=== PATIENT | female | born 1965 | race Caucasian/White ===

== ENCOUNTER 2019-08-08 12:39 | Inpatient (IN) ==
--- NOTE | 2019-08-08 13:17 | Diag Imaging Result Doc PS360 ---
EXAM: CHEST-2 VIEWS 08/08/2019 HISTORY: chest congestion low o2 sat TECHNIQUE: PA and lateral chest COMMENT: There is a calcified granuloma in the left upper lobe. The lungs are better expanded than on 04/28/2017 but otherwise there has been no significant change. IMPRESSION: No acute disease. Electronically signed by Fortino Mcneil 08/08/2019 1:15 PM
[2019-08-08 14:20] LABS: BASO# 0.01 X1000 (0.0-0.2); BASO% 0.1 % (0.0-0.8); EOS# 0.06 X1000 (0.0-0.7); EOS% 0.8 % (0.0-10.0); HEMATOCRIT 36.4 % (37.0-47.0); HEMOGLOBIN 10.5 g/dL (12.0-16.0); IMM GRAN# 0.02 X1000 (0.0-0.04); IMM GRAN% 0.3 % (0.0-0.5); LYMPH# 1.96 X1000 (1.2-3.4); LYMPH% 25.6 % (20.5-51.1); MCHC 28.8 g/dL (33-37); MCV 86.7 FL (81-99); MONO% 5.2 % (1.7-9.3); MPV 10.6 FL (7.4-10.4); NEUT# 5.21 X1000 (1.4-6.5); PLT 329 X1000 (130-400); RDW 19.3 % (11.5-14.5); WBC 7.66 X1000 (4.8-10.8)
[2019-08-08 14:23] LABS: AGAP 15; ALBUMIN 3.9 g/dL (3.5-5.0); ALKALINE PHOSPHATASE 82 U/L (32-104); BUN 9 mg/dL (8-22); CALCIUM 8.2 mg/dL (8.8-10.2); CHLORIDE 106 mmol/L (98-107); COSMO 282; CREATININE 0.7 mg/dL (0.5-0.9); ESTIMATED GFR > 60; GLUCOSE 106 mg/dL (70-104); GOT 14 U/L (10-30); GPT 17 U/L (10-36); POTASSIUM 4.3 mmol/L (3.5-5.1); SODIUM 142 mmol/L (136-145); TCO2 21 mmol/L (25-35); TOTAL PROTEIN 6.1 g/dL (6.3-8.3)
[2019-08-08] MEDS ORDERED: LOVENOX 1 MG/KG SUBQ ONE (14:57)
--- NOTE | 2019-08-08 14:58 | Vascular Study Report ---
EXAM: Venous U/S Right Leg HISTORY: rule out DVT TECHNIQUE: Velazquez scale, color Doppler, and duplex evaluation was performed. Standard protocol. COMPARISON: None. FINDINGS: The posterior tibial vein is noncompressible consistent with acute DVT. There is also thrombosis of the right saphenous vein and a scoop operator vein. The remainder of the deep veins deep veins of the right lower extremity demonstrate appropriate compressibility and augmentation. IMPRESSION: Deep venous thrombosis involving the posterior tibial vein. Superficial thrombosis of the right saphenous vein and scoop operator vein. Electronically signed by Agnieszka Vieira 08/08/2019 2:56 PM
[2019-08-08] MEDS ORDERED: LOVENOX SUBQ ONE (15:15)
[2019-08-08] MEDS ORDERED: MORPHINE IM ONE (15:35)
[2019-08-08] MEDS ORDERED: PHENERGAN IM ONE (15:36)
[2019-08-08] MEDS ORDERED: LOVENOX SUBQ SCH (17:45)
--- NOTE | 2019-08-08 18:18 | PROVIDER DOCUMENTATION ---
This chart was entered by Kavita Waterman Scribe, acting as scribe for Maria G Ram MD. HPI-General Adult - General Chief Complaint: Extremity Pain Stated Complaint: SENT BY - BLOOD CLOT Time Seen by Provider: 08/08/19 13:34 Source: patient Allergies/Adverse Reactions: Patient Allergies Allergy/AdvReac Type Severity Reaction Status Date / Time Sulfa (Sulfonamide Allergy Severe ANAPHYLAXIS Verified 08/08/19 13:57 Antibiotics) Home Medications: Home Medication List Medication Instructions Recorded Confirmed Last Taken Type Cyclobenzaprine HCl [Flexeril] 10 mg PO HS 11/24/12 08/08/19 04/26/17 20:00 History Buspirone HCl 10 mg PO BID 08/08/19 08/08/19 Unknown History Celecoxib 200 mg PO DAILY 08/08/19 08/08/19 Unknown History Citalopram [Celexa] 1 tab PO DAILY 08/08/19 08/08/19 Unknown History Hydrocodone/Acetaminophen [Alvo 1 tab PO TID PRN 08/08/19 08/08/19 Unknown History 5-325 Tablet] LISINOpril [Prinivil] 20 mg PO DAILY 08/08/19 08/08/19 Unknown History Nortriptyline [Pamelor] 10 mg PO DAILY 08/08/19 08/08/19 Unknown History Pregabalin 150 mg PO DAILY 08/08/19 08/08/19 Unknown History - History of Present Illness -Gen Adult Nature of Presenting Problems: Pt is a 54 yowf with c/o pain in her right foot that has spread upward into her calf and lower thigh. Pt states that pain started in her right inside ankle 5 days ago and has gotten worse and moved outward from original location. Pt is has HTN and is obese but states she is otherwise healthy. Pt is alert and nontoxic in appearance. Location of Pain/Injury: reports: lower extremity (Pt states pain started in right ankle and has spread to foot, calf and lower thigh) Pain Radiation: reports: legs (lower) Quality of Pain: reports: sharp, throbbing Onset/Duration: reports: 5 days ago Timing: reports: still present, getting worse (spread from ankle to foot, calf and lower thigh) Associated Symptoms: reports: cough. denies: chest pain, fever/chills, syncope, vomiting Review of Systems - Adult - REVIEW OF SYSTEMS - ADULT Constitutional: denies: chills, fever Eyes: reports: no symptoms reported Ears, Nose, Mouth & Throat: reports: no symptoms reported Cardiovascular: denies: chest pain, syncope Respiratory: reports: see HPI, cough Gastrointestinal: reports: no symptoms reported Genitourinary: reports: no symptoms reported Musculoskeletal: reports: see HPI, joint swelling (right ankle) Integumentary: reports: no symptoms reported Neurological: denies: dizziness/vertigo, headache/migraines Psychiatric: reports: no symptoms reported Endocrine: reports: no symptoms reported Hematologic/Lymphatic: reports: no symptoms reported Allergic/Immunologic: reports: no symptoms reported All Other Systems: Reviewed and Negative Past History - Adult - PAST MEDICAL HISTORY-ADULT Review of Records: reports: Old Records Reviewed, Nursing Assessment Review, Medications Reviewed, Social history reviewed & non-contributory. Major Childhood Illnesses: reports: denies history Cardiovascular: reports: HTN Respiratory: reports: denies history Gastrointestinal: reports: denies history Genitourinary: reports: denies history Musculoskeletal: reports: denies history Neurological: reports: denies history Endocrine/Immune: reports: denies history Other Conditions: reports: denies history - IMMUNIZATION STATUS Childhood Immunizations: See Nurse Assessment Flu Vaccine: See Nurse Assessment - SOCIAL HISTORY Smoking: non-smoker Living Situation: family Physical Exam-General - PHYSICAL EXAM-ADULT Initial Vital Signs Reviewed: Yes (HR 108, O2 93 RA) - CONSTITUTIONAL General Appearance: appears well, alert, no apparent distress, obese - EYES Eyes: PERRL/EOMI - HEAD, EARS, NOSE, MOUTH & THROAT HENMT: moist mucous membranes - NECK Neck: non-tender, full range of motion, supple - RESPIRATORY Respiratory: chest non-tender, lungs clear, normal breath sounds - CARDIOVASCULAR Cardiovascular: normal peripheral pulses, tachycardia - GASTROINTESTINAL (ABDOMEN) Abdominal Exam: non tender, soft - MUSCULOSKELETAL Back Exam: no CVA tenderness, no vertebral tenderness Extremity: normal range of motion, calf tenderness (right leg), pedal edema (right leg), swelling (right ankle), tenderness (ankle, calf and lower thigh) - SKIN Integumentary: normal color, normal turgor, warm/dry - NEUROLOGIC Neurologic: grossly normal, no motor/sensory deficits - PSYCHIATRIC Psych/Mental Status: normal mood/affect, normal thought content, normal thought process, oriented x 3 Progress - PLAN OF CARE/RESULTS Progress/Plan/Lab Results: Vital Signs - 8 hr 08/08/19 12:43 Temperature 99.1 F Pulse Rate 108 H Respiratory Rate 18 Blood Pressure 137/80 O2 Sat by Pulse Oximetry 93 L Laboratory Results - last 24 hr 08/08/19 12:53 D-Dimer, Quantitative 2.74 H Orders Category Date Time Status CHEST-2 VIEWS [RAD] Stat Exams 08/08/19 12:50 Completed D-DIMER [COAG] Stat Lab 08/08/19 12:53 Completed US [Venous U/S Right Leg] Stat Ther 08/08/19 13:43 Ordered Result Diagrams: 08/08/19 12:53 08/08/19 12:53 - XRAY 1 XRAY Study: Chest Impression: See EMR Report (EXAM: CHEST-2 VIEWS 08/08/2019 HISTORY: chest congestion low o2 sat TECHNIQUE: PA and lateral chest COMMENT: There is a calcified granuloma in the left upper lobe. The lungs are better expanded than on 04/28/2017 but otherwise there has been no significant change. IMPRESSION: No acute disease. Electronically signed by Fortino Mcneil 08/08/2019 1:15 PM 08/08/19 1315 Interpreting Physician: Fortino Mcneil MD Dictated Date/Time: 08/08/19 1314 cc: Maria G aRm MD; Kavita eMeks) - CT/MRI 1 CT Study: Lower Ext Impression: See EMR Report (Patient: LATRICE AUSTINADM Date: 08/08/19MR#: [id number] : 1965Acct#: [id number] Family Physician: Kavita Meeks EXAM: Venous U/S Right Leg HISTORY: rule out DVT TECHNIQUE: Velazquez scale, color Doppler, and duplex evaluation was performed. Standard protocol. COMPARISON: None. FINDINGS: The posterior tibial vein is noncompressible consistent with acute DVT. There is also thrombosis of the right saphenous vein and a rig welder vein. The remainder of the deep veins deep veins of the right lower extremity demonstrate appropriate compressibility and augmentation. IMPRESSION: Deep venous thrombosis involving the posterior tibial vein. Superficial thrombosis of the right saphenous vein and rig welder vein. Electronically signed by Agnieszka Vieira 08/08/2019 2:56 PM 08/08/19 1456 Interpreting Physician: Agnieszka Vieira MD Dictated Date/Time: 08/08/19 1451 cc: Maria G Ram MD; Kavita Meeks) Departure - Departure Date of Disposition Decision: 08/08/19 Time of Disposition Decision: 18:16 DIAGNOSIS: DVT (deep venous thrombosis) Qualifiers: DVT location: lower extremity Affected thrombotic vein of extremity: unspecified vein of extremity Chronicity: acute Laterality: right Qualified Code(s): I82.401 - Acute embolism and thrombosis of unspecified deep veins of right lower extremity Pulmonary embolism Qualifiers: Pulmonary embolism type: unspecified Chronicity: acute Acute cor pulmonale presence: without acute cor pulmonale Qualified Code(s): I26.99 - Other pulmonary embolism without acute cor pulmonale Disposition: ADMITTED INPATIENT 09 Certified Medical Emergency: Emergent Condition: Critical Referrals and Follow-Ups: Kavita Meeks CRNP [Primary Care Provider] - Discharge Education: Steps to Quit Smoking, [id number] - Critical Care Note This patient required my direct & personal management of CC.: Yes Total Time (mins): 31 Critical Care Statement: This patient required my direct personal management to treat or rule out processes, the absence of which, could potentiallly result in sudden, clinically significant life or limb threatening deterioration. Attestation - Physician/ UTE Attestation Patient care was provided by Advanced Practice Provider:: No The physician spent face to face time with patient:: Yes Advanced Practice Provider documentation review:: Supervising physician onsite and consulted in the evaluation and care of this patient. The physician did have a face to face encounter with the patient. This chart was documented by the indicated scribe, (Kavita Waterman, Alexibanjelica) and accurately reflects the services I performed and decisions made by me, Maria G Ram MD, as attested by the provider's signature.
--- NOTE | 2019-08-08 18:24 | Diag Imaging Result Doc PS360 ---
EXAM: CT ANGIOGRM PULMONARY ARTERIES INDICATION: shortness of breath TECHNIQUE: This exam was performed using automated exposure control, adjustment of mA or kV according to patient size, and/or use of iterative reconstruction technique. Thin section axial images and 3-D MIPS were obtained. COMPARISON: None. FINDINGS: Note that there is a large amount of soft tissue contrast in the right axillary region and upper right breast from an earlier CT with an infiltrated IV contrast bolus. There are small filling defects in lobar and segmental branches of the pulmonary arteries bilaterally leading to the lower lobes as well as the right middle lobe consistent with pulmonary emboli. The clot burden is fairly light. There is no cardiomegaly and no pulmonary dilatation. There is no evidence of aortic dissection or aneurysm. There is no evidence of significant mediastinal or hilar lymphadenopathy. There is a calcified granuloma in the left upper lobe. No airspace consolidations are appreciated. There is no evidence of pulmonary infarct. There is no pleural fluid collection and no pneumothorax. Limited views of the upper abdomen are essentially unremarkable. IMPRESSION: 1.Bilateral pulmonary emboli as described with a fairly light clot burden. 2.Infiltrated contrast in the soft tissues of the upper right chest wall from an earlier CT. Electronically signed by Yaakov Curry 08/08/2019 6:22 PM
[2019-08-08] MEDS: FLEXERIL PO SCH (20:07)
[2019-08-08] MEDS: NORCO-5 PO PRN (20:07)
[2019-08-08] MEDS: BUSPAR PO SCH (20:07)
--- NOTE | 2019-08-08 23:10 | HISTORY AND PHYSICAL ---
CHIEF COMPLAINT: Swelling lower extremity. HISTORY OF PRESENT ILLNESS: The patient is a 54-year-old female who has no previous injury or prolonged illness. However, she is a smoker and is overweight. She has been walking more than usual due to her mother's current illness. States she has been sitting more than usual, but not for a long period of time. Noted she started having pain in her right calf and ankle when she started walking about 5 days ago. She presented to her primary care, [facility]. They had her come to the ER, where she was subsequently diagnosed with DVT. ALLERGIES: Sulfa. MEDICATIONS: Celebrex, BuSpar, Celexa, [place] p.r.n., Prinivil 20, Pamelor 10 and Lyrica 150. REVIEW OF SYSTEMS: The patient notes that she has been short of breath. Her oxygen level is low in the ER. Denies any recent cough, congestion. Denies any fevers or chills. Does note that she has had some sharp, stabbing pain in her right calf and ankle, also swelling in her right lower extremity. Denies any headaches, blurred vision, change in vision. Denies any focalized numbness, tingling, weakness in his extremities. Denies dysuria, frequency, urgency, constipation, melena, hematochezia. PAST MEDICAL HISTORY: Significant for hypertension, chronic arthritis. FAMILY HISTORY: Noncontributory. No family history of recurrent DVTs. SOCIAL HISTORY: Patient lives at home. States she does smoke. Primary care is [facility]. PHYSICAL EXAMINATION: VITAL SIGNS: Reviewed. She is afebrile. Saturation 93% on 2 L. Pulse 108. Blood pressure stable. GENERAL: Patient is very pleasant. She is in no respiratory distress currently. HEENT: Normocephalic. NECK: Supple. CARDIOVASCULAR: Regular rate. CHEST: Clear. ABDOMEN: Soft. EXTREMITIES: She is tender in her right calf, has trace edema. NEUROLOGIC: No focal changes. ASSESSMENT: 1. Deep venous thrombosis right lower extremity. 2. Hypertension. 3. Acute hypoxic respiratory failure. PLAN: We are going to admit her to the hospital, place her on Lovenox. We will check CT to rule out pulmonary emboli and we will follow. cc: Macario Wright MD
--- NOTE | 2019-08-08 23:41 | HISTORY AND PHYSICAL ---
CHIEF COMPLAINT: Right foot pain that radiates to the calf and thigh. HISTORY OF PRESENT ILLNESS: This is a 54-year-old female with a history of urinary incontinence, hypertension and migraines. She presents to the emergency room complaining of right foot pain that radiates up into her calf and lower thigh that has been present for 5 days and progressively gotten worse. She describes this as a sharp, throbbing type pain. She rates it as a 8/10 at its worst and a 1 to 2/10 at its best. She denies any shortness of breath, chest pain, palpitations. PAST MEDICAL HISTORY: Hypertension, migraines, urinary incontinence. PAST SURGICAL HISTORY: Right knee replacement, gastric bypass. SOCIAL HISTORY: She lives with family members. She smokes about a half pack of cigarettes a day, she has for about 20 years. She denies any alcohol or illicit drug use. FAMILY HISTORY: Positive for hypertension. REVIEW OF SYSTEMS: Discussed with patient with pertinent positives stated in HPI. She denied any syncope, dizziness, any chest pain or palpitations, any shortness of breath, cough, fever, chills, any night sweats, recent weight loss or weight gain, any nausea, vomiting, diarrhea, constipation, black or bloody vomitus or stools, any hematuria, dysuria, frequency, urgency. PHYSICAL EXAMINATION: GENERAL: This is a 54-year-old female who is lying on the stretcher in the emergency room in no distress. VITAL SIGNS: Blood pressure is 115/61 with heart rate 80, respirations are 22, temperature is 98.3 degrees with O2 saturations 100% on 2 L nasal cannula, she was 89% on room air. EYES: Pupils equal, round, react to light. EOMs are intact. Sclerae are anicteric. HENT: Head is normocephalic, atraumatic. Mucous membranes are moist. NECK: Supple with trachea midline. CARDIOVASCULAR: Regular rate and rhythm. S1 and S2 appreciated. No murmur. EXTREMITIES: She has right lower extremity edema. No edema to upper extremities and left lower extremity. Right calf is tender to palpation. Left calf is not tender. SKIN: Warm and dry. NEUROLOGIC: She is alert and oriented x3. GASTROINTESTINAL: Abdomen is soft, nontender, nondistended with bowel sounds in all 4 quadrants. PULMONARY: Breath sounds are clear. No increased work of breathing noted. Chest rises and falls symmetric to respiration. LABS: WBC is 7.6 with hemoglobin 10.5, hematocrit 36.4, platelets of 329,000. Sodium 142, potassium 4.3, BUN 9, creatinine 0.7 with a glucose of 106. D-dimer is 2.74. Right lower extremity venous ultrasound reveals DVT in the right posterior tibial vein, superficial thrombus of the right saphenous and dog obedience instructor vein. ASSESSMENT AND PLAN: 1. Deep venous thrombosis, right lower extremity. 2. Elevated D-dimer. 3. Hypertension. 4. History of migraines. PLAN: The patient has been admitted to the medical-surgical floor. She will be placed on telemetry. We will give Lovenox 1 mg/kg. We will identify her home medications and continue these as appropriate. We will check a CBC, CMP, magnesium and TSH in the morning. Place her on a regular diet. The patient was examined and plan was discussed with Dr. Wright. Further treatment pending hospital course. Dictated by CUCO Kruger for Macario Wright MD cc: CUCO Kruger MD
[2019-08-09] MEDS: NORCO-5 PO PRN (04:17)
[2019-08-09] MEDS: LOVENOX SUBQ SCH ×2 (04:17→15:00)
[2019-08-09 06:13] LABS: HEMOGLOBIN 9.5 g/dL (12.0-16.0); MCH 24.4 PG (27-31); MCHC 27.9 g/dL (33-37); MCV 87.2 FL (81-99); MPV 10.1 FL (7.4-10.4); RBC 3.9 XMIL (4.2-5.4); RDW 19.3 % (11.5-14.5); WBC 5.63 X1000 (4.8-10.8)
[2019-08-09 06:17] LABS: AGAP 9; ALBUMIN 3.3 g/dL (3.5-5.0); ALKALINE PHOSPHATASE 72 U/L (32-104); BUN 10 mg/dL (8-22); CALCIUM 8.3 mg/dL (8.8-10.2); CHLORIDE 106 mmol/L (98-107); COSMO 279; CREATININE 0.6 mg/dL (0.5-0.9); ESTIMATED GFR > 60; GLUCOSE 106 mg/dL (70-104); GOT 17 U/L (10-30); GPT 15 U/L (10-36); MAGNESIUM 2.1 mg/dL (1.5-2.7); POTASSIUM 4.4 mmol/L (3.5-5.1); SODIUM 140 mmol/L (136-145); TCO2 25 mmol/L (25-35); TOTAL PROTEIN 5.9 g/dL (6.3-8.3)
[2019-08-09] MEDS ORDERED: FLU VACCINE IM ONE (09:00)
[2019-08-09] MEDS: LYRICA PO SCH (10:32)
[2019-08-09] MEDS: PAMELOR PO SCH (10:32)
[2019-08-09] MEDS: CELEXA PO SCH (10:32)
[2019-08-09] MEDS: BUSPAR PO SCH ×2 (10:32→21:16)
[2019-08-09] MEDS: PRINIVIL PO SCH (10:33)
[2019-08-09] MEDS: BENADRYL PO PRN ×3 (10:46→21:15)
[2019-08-09] MEDS: NORCO-10 PO PRN ×3 (10:46→21:16)
[2019-08-09 11:57] LABS: INR 0.95; PROTIME 13.2 Seconds (11.0-16.0)
[2019-08-09] MEDS ORDERED: BLISTEX MEDICATED BERRY LIP BALM TOP ONE (14:52)
[2019-08-09] MEDS: COUMADIN PO SCH (21:16)
[2019-08-09] MEDS: FLEXERIL PO SCH (21:16)
--- NOTE | 2019-08-10 00:45 | PROGRESS NOTE ---
DATE: 08/09/2019 SUBJECTIVE: Patient notes that she is feeling okay. Still having some mild shortness of breath, still having right calf pain. PHYSICAL EXAMINATION: Temperature 97.5 degrees, pulse 89, respiratory rate 18, BP 135/66. General: The patient is very pleasant. She is in no respiratory distress while she is sitting in bed. She does get short of breath with activity. HEENT: Normocephalic. Neck: Supple. Cardiovascular: Regular rate. No murmurs. Chest clear and nonlabored. Abdomen: Soft, nondistended. Extremities: Moves all extremities. Still has right calf pain. ASSESSMENT: 1. Deep venous thrombosis, right lower extremity. 2. Bilateral small pulmonary emboli. 3. Hypertension. 4. Hypoxic respiratory failure secondary to her bilateral pulmonary emboli. PLAN: We are going to continue the patient in the hospital. Continue Lovenox. Start her on Coumadin as she does not have insurance. We will continue pain control and will follow. cc: Macario Wright MD
[2019-08-10] MEDS: BENADRYL PO PRN ×6 (02:15→21:03)
[2019-08-10] MEDS: NORCO-10 PO PRN ×6 (02:15→21:04)
[2019-08-10] MEDS: LOVENOX SUBQ SCH ×2 (04:24→18:05)
[2019-08-10] MEDS: PRINIVIL PO SCH (10:02)
[2019-08-10] MEDS: PAMELOR PO SCH (10:02)
[2019-08-10] MEDS: LYRICA PO SCH (10:02)
[2019-08-10] MEDS: CELEXA PO SCH (10:02)
[2019-08-10] MEDS: BUSPAR PO SCH ×2 (10:03→20:48)
[2019-08-10] MEDS: COUMADIN PO SCH (20:48)
[2019-08-10] MEDS: FLEXERIL PO SCH (20:48)
[2019-08-10] MEDS: ZOFRAN IV PRN (20:49)
--- NOTE | 2019-08-11 00:09 | PROGRESS NOTE ---
DATE: 08/10/2019 SUBJECTIVE: Patient has no new complaints. States that she is feeling okay. PHYSICAL EXAMINATION: Vital Signs: Temperature 98 degrees, pulse 76, respiratory rate 18, BP 126/65. General: Patient is an obese female who is in no respiratory distress. HEENT: Normocephalic. Neck: Supple. Cardiovascular: Regular rate. Chest: Clear. Abdomen: Soft. Extremities: Moves all extremities. ASSESSMENT: 1. Bilateral small pulmonary emboli. 2. Hypothyroidism. 3. History of migraines. PLAN: We will continue patient in the hospital. Continue treatment with heparin until her Coumadin, INR becomes therapeutic. cc: Macario Wright MD
[2019-08-11] MEDS: BENADRYL PO PRN ×5 (01:50→20:17)
[2019-08-11] MEDS: NORCO-10 PO PRN ×5 (01:50→20:17)
[2019-08-11] MEDS: ZOFRAN IV PRN ×5 (01:53→20:17)
[2019-08-11] MEDS: LOVENOX SUBQ SCH ×2 (04:34→16:18)
[2019-08-11 08:27] LABS: INR 1.12
[2019-08-11] MEDS: LYRICA PO SCH (10:02)
[2019-08-11] MEDS: PROTONIX PO SCH (10:02)
[2019-08-11] MEDS: PRINIVIL PO SCH (10:03)
[2019-08-11] MEDS: PAMELOR PO SCH (10:03)
[2019-08-11] MEDS: CELEXA PO SCH (10:03)
[2019-08-11] MEDS: BUSPAR PO SCH ×2 (10:03→20:17)
[2019-08-11] MEDS: CARAFATE PO SCH ×3 (12:05→20:18)
--- NOTE | 2019-08-11 16:58 | PROGRESS NOTE ---
DATE: 08/11/2019 SUBJECTIVE: Patient with no new complaints other than nausea. States she still has some shortness of breath, but this has not really changed. PHYSICAL EXAMINATION: Temperature 98.6 degrees, pulse 87, respiratory rate 18, BP 140/68.General: Patient is in no distress. HEENT: Normocephalic. Neck: Supple. Cardiovascular: Regular rate. Chest: Clear. Abdomen: Soft. Extremities: Moves all extremities. ASSESSMENT: 1. Bilateral pulmonary emboli. 2. Deep venous thrombosis right lower extremity. 3. Nausea, likely reflux. 4. Hypertension. PLAN: We are going to add PPI and Carafate. Continue Coumadin until her INR is greater than 2. cc: Macario Wright MD
[2019-08-11] MEDS: MIRALAX PO SCH ×2 (17:33→20:34)
[2019-08-11] MEDS: COUMADIN PO SCH (20:17)
[2019-08-11] MEDS: FLEXERIL PO SCH (20:18)
[2019-08-12] MEDS: ZOFRAN IV PRN ×4 (05:08→22:34)
[2019-08-12] MEDS: NORCO-10 PO PRN ×4 (05:08→22:25)
[2019-08-12] MEDS: BENADRYL PO PRN ×4 (05:08→22:26)
[2019-08-12] MEDS: LOVENOX SUBQ SCH ×2 (05:08→18:18)
[2019-08-12] MEDS: PROTONIX PO SCH (06:01)
[2019-08-12] MEDS: PRINIVIL PO SCH (08:00)
[2019-08-12] MEDS: BUSPAR PO SCH ×2 (08:00→22:26)
[2019-08-12] MEDS: CELEXA PO SCH (08:00)
[2019-08-12] MEDS: PAMELOR PO SCH (08:00)
[2019-08-12] MEDS: CARAFATE PO SCH ×4 (08:00→22:25)
[2019-08-12] MEDS: LYRICA PO SCH (08:00)
[2019-08-12] MEDS: MIRALAX PO SCH ×2 (08:00→22:27)
--- NOTE | 2019-08-12 16:55 | PROGRESS NOTE ---
DATE: 08/12/2019 SUBJECTIVE: Patient notes that she has epigastric pain with nausea. Denies any fevers or chills. States it hurts when she eats. She also has suprapubic pain. EXAM: Vitals: Temp 98.5 degrees, pulse 88, respiratory rate 18, BP 117/55. General: Patient is awake, currently in no respiratory distress. HEENT: Normocephalic. Neck: Supple. Cardiovascular: Regular rate. Chest: Clear. Abdomen: Soft. Extremities: Moves all extremities. ASSESSMENT: 1. Epigastric pain of undetermined origin. PPI and Carafate did not help. 2. Bilateral pulmonary emboli. 3. Right lower extremity deep venous thrombosis. 4. Nausea. PLAN: We are going to continue patient in the hospital. We are going to check an ultrasound of her abdomen and will follow. We will continue Coumadin until INR is greater than 2. cc: Macario Wright MD
--- NOTE | 2019-08-12 18:15 | Diag Imaging Result Doc PS360 ---
EXAM: US ABDOMEN-COMPLETE HISTORY: pain, epgastric, LLQ TECHNIQUE: Abdominal ultrasound COMPARISON: 12/20/2012 FINDINGS: The pancreas and aorta are predominantly obscured. Normal inferior vena cava. No focal hepatic abnormality. The gallbladder is not present. The common bile duct measures 4 mm. Normal kidneys. No hydronephrosis. The spleen measures 15.1 cm in length. No ascites. IMPRESSION: 1.Cholecystectomy 2.Mild splenomegaly Electronically signed by Román Daniel 08/12/2019 6:12 PM
[2019-08-12] MEDS: COUMADIN PO SCH (22:26)
[2019-08-12] MEDS: FLEXERIL PO SCH (22:26)
[2019-08-13] MEDS: PROTONIX PO SCH ×2 (05:23→06:11)
[2019-08-13] MEDS: BENADRYL PO PRN ×4 (05:23→20:28)
[2019-08-13] MEDS: CARAFATE PO SCH ×5 (05:23→20:28)
[2019-08-13] MEDS: LOVENOX SUBQ SCH ×2 (05:24→16:13)
[2019-08-13] MEDS: NORCO-10 PO PRN ×4 (05:24→20:28)
[2019-08-13] MEDS: ZOFRAN IV PRN ×3 (05:25→14:10)
[2019-08-13 06:38] LABS: HEMATOCRIT 28.6 % (37.0-47.0); HEMOGLOBIN 8.3 g/dL (12.0-16.0); MCH 24.4 PG (27-31); MCV 84.1 FL (81-99); MPV 10.9 FL (7.4-10.4); RBC 3.4 XMIL (4.2-5.4); WBC 4.1 X1000 (4.8-10.8)
[2019-08-13 06:53] LABS: INR 1.51; PROTIME 19.1 Seconds (11.0-16.0)
[2019-08-13 07:00] LABS: ALBUMIN 3.1 g/dL (3.5-5.0); CALCIUM 7.8 mg/dL (8.8-10.2); CREATININE 1.9 mg/dL (0.5-0.9); TOTAL BILIRUBIN 0.2 mg/dL (0.20-1.00); TOTAL PROTEIN 5.9 g/dL (6.3-8.3)
[2019-08-13] MEDS: MIRALAX PO SCH ×2 (09:53→20:28)
[2019-08-13] MEDS: PAMELOR PO SCH (09:53)
[2019-08-13] MEDS: LYRICA PO SCH (09:53)
[2019-08-13] MEDS: PRINIVIL PO SCH (09:54)
[2019-08-13] MEDS: BUSPAR PO SCH ×2 (09:54→20:29)
[2019-08-13] MEDS: CELEXA PO SCH (09:54)
--- NOTE | 2019-08-13 19:56 | PROGRESS NOTE ---
DATE: 08/13/2019 SUBJECTIVE: The patient notes that she is starting to feel a little bit better, less nauseated, thinks that she will be able to drink a little bit better today. OBJECTIVE: Temperature 98.3, pulse 101, respiratory rate 18, BP 129/42.General: The patient is awake, alert. She is pleasant. She is in no current distress. HEENT: Normocephalic. Neck: Supple. Cardiovascular: Regular rate. Chest: Clear. Abdomen: Soft. Extremities: Moves all extremities. ASSESSMENT: 1. Hyponatremia at 128. 2. Acute volume depletion with a BUN elevation at 38 and 1.9. 3. Pulmonary emboli bilateral. 4. Right lower extremity DVT. PLAN: Currently the patient's IV has infiltrated. She is starting to drink better. We are going to leave her IV out today and recheck her labs in the a.m. If her creatinine and BUN continue to climb then certainly we will have to put an IV back in and go that route. The patient is aware. cc: Macario Wright MD
[2019-08-13] MEDS: ZOFRAN ODT PO PRN (20:28)
[2019-08-13] MEDS: COUMADIN PO SCH ×2 (20:28)
[2019-08-13] MEDS: FLEXERIL PO SCH (20:29)
[2019-08-14] MEDS: LOVENOX SUBQ SCH ×2 (04:53→17:43)
[2019-08-14] MEDS: ZOFRAN ODT PO PRN ×2 (04:54→10:34)
[2019-08-14] MEDS: PROTONIX PO SCH ×2 (04:54→07:38)
[2019-08-14] MEDS: NORCO-10 PO PRN ×4 (04:54→19:43)
[2019-08-14] MEDS: BENADRYL PO PRN ×4 (04:54→19:43)
[2019-08-14] MEDS: CARAFATE PO SCH ×5 (04:55→21:32)
[2019-08-14 07:07] LABS: HEMATOCRIT 27.4 % (37.0-47.0); HEMOGLOBIN 7.9 g/dL (12.0-16.0); MCH 24.3 PG (27-31); MCHC 28.8 g/dL (33-37); MCV 84.3 FL (81-99); MPV 11.3 FL (7.4-10.4); RBC 3.25 XMIL (4.2-5.4); WBC 3.92 X1000 (4.8-10.8)
[2019-08-14 07:14] LABS: INR 1.97; PROTIME 23.6 Seconds (11.0-16.0)
[2019-08-14 08:14] LABS: ALBUMIN 2.9 g/dL (3.5-5.0); ALKALINE PHOSPHATASE 63 U/L (32-104); BUN 37 mg/dL (8-22); CALCIUM 7.5 mg/dL (8.8-10.2); CREATININE 1.7 mg/dL (0.5-0.9); ESTIMATED GFR 31; GLUCOSE 97 mg/dL (70-104); GOT 34 U/L (10-30); GPT 24 U/L (10-36); TCO2 20 mmol/L (25-35); TOTAL BILIRUBIN < 0.15 mg/dL (0.20-1.00); TOTAL PROTEIN 4.9 g/dL (6.3-8.3)
[2019-08-14 09:46] LABS: POTASSIUM 4.9 mmol/L (3.5-5.1); SODIUM 130 mmol/L (136-145)
[2019-08-14 09:47] LABS: CHLORIDE 99 mmol/L (98-107)
[2019-08-14 09:48] LABS: AGAP 11
[2019-08-14] MEDS: PAMELOR PO SCH (09:48)
[2019-08-14] MEDS: MIRALAX PO SCH ×2 (09:49→21:33)
[2019-08-14] MEDS: LYRICA PO SCH (09:49)
[2019-08-14] MEDS: CELEXA PO SCH (09:49)
[2019-08-14] MEDS: BUSPAR PO SCH ×2 (09:49→21:32)
[2019-08-14 09:50] LABS: COSMO 269
[2019-08-14] MEDS: NS 1,000 ML IV SCH (10:03)
[2019-08-14] MEDS: ZOFRAN IV PRN ×2 (15:12→19:43)
--- NOTE | 2019-08-14 19:19 | PROGRESS NOTE ---
DATE: 08/14/2019 SUBJECTIVE: Patient notes that she is drinking a little bit better, although states she still has a very dry tongue. States she is thirsty all the time. Denies any fevers, chills. Still having some left upper quadrant abdominal pain. PHYSICAL EXAMINATION: Vital Signs: Temperature 98.3, pulse 18, respiratory rate 22, BP 128/42. General: Patient is awake. She is in no current respiratory distress. HEENT: Normocephalic. Neck: Supple. Cardiovascular: Regular rate. Chest: Clear, nonlabored. Abdomen: Soft nondistended. Extremities: Moves all extremities. ASSESSMENT/PLAN: 1. Hyponatremia at 132. 2. Acute on chronic renal failure. Creatinine actually is improving. It was 0.7 on admit, then as high as 1.9, currently is improving at 1.7. Does still appear to be volume depleted . 3. Moderate protein calorie malnutrition. 4. Anemia of chronic disease. Will certainly need to follow this closely. We are going to Hemoccult her stools. Her hemoglobin was 10 on admit. It has currently dropped down to 7.9. She is on Coumadin for her pulmonary emboli. 5. Bilateral pulmonary emboli. 6. Right lower extremity deep venous thrombosis. 7. Hypertension. We are going to hold her lisinopril given her elevation in her creatinine, and will follow. cc: Macario Wright MD
[2019-08-14] MEDS: FLEXERIL PO SCH (21:32)
[2019-08-14] MEDS: COUMADIN PO SCH ×2 (21:32)
[2019-08-15] MEDS: NORCO-10 PO PRN ×4 (03:31→22:05)
[2019-08-15] MEDS: BENADRYL PO PRN ×4 (03:32→22:05)
[2019-08-15] MEDS: ZOFRAN IV PRN (03:32)
[2019-08-15] MEDS: LOVENOX SUBQ SCH (03:32)
[2019-08-15] MEDS: NS 1,000 ML IV SCH ×2 (05:19→07:51)
[2019-08-15 06:16] LABS: HEMOGLOBIN 7.6 g/dL (12.0-16.0); MCH 24.1 PG (27-31); MCHC 28.1 g/dL (33-37); MCV 85.4 FL (81-99); MPV 10.6 FL (7.4-10.4); RBC 3.16 XMIL (4.2-5.4); RDW 19.1 % (11.5-14.5); WBC 3.42 X1000 (4.8-10.8)
[2019-08-15 06:23] LABS: INR 2.4; PROTIME 27.6 Seconds (11.0-16.0)
[2019-08-15 06:30] LABS: AGAP 10; ALBUMIN 3.3 g/dL (3.5-5.0); ALKALINE PHOSPHATASE 67 U/L (32-104); BUN 26 mg/dL (8-22); CALCIUM 7.8 mg/dL (8.8-10.2); CHLORIDE 101 mmol/L (98-107); COSMO 271; ESTIMATED GFR 58; GLUCOSE 98 mg/dL (70-104); GOT 29 U/L (10-30); GPT 25 U/L (10-36); MAGNESIUM 2.4 mg/dL (1.5-2.7); POTASSIUM 4.8 mmol/L (3.5-5.1); SODIUM 133 mmol/L (136-145); TCO2 22 mmol/L (25-35); TOTAL BILIRUBIN < 0.15 mg/dL (0.20-1.00); TOTAL PROTEIN 5.9 g/dL (6.3-8.3)
[2019-08-15] MEDS: PROTONIX PO SCH (06:31)
[2019-08-15] MEDS: LYRICA PO SCH (08:42)
[2019-08-15] MEDS: BUSPAR PO SCH ×2 (08:42→22:06)
[2019-08-15] MEDS: PAMELOR PO SCH (08:42)
[2019-08-15] MEDS: CARAFATE PO SCH ×4 (08:42→22:06)
[2019-08-15] MEDS: MIRALAX PO SCH ×2 (08:42→22:10)
[2019-08-15] MEDS: CELEXA PO SCH (08:42)
[2019-08-15] MEDS: ZOFRAN ODT PO PRN ×3 (09:47→22:06)
--- NOTE | 2019-08-15 11:41 | Diag Imaging Result Doc PS360 ---
EXAM: CT ABD/PELVIS W/PO AND IV CON HISTORY: LLQ pain TECHNIQUE: This exam was performed using automated exposure control, adjustment of mA or kV according to patient size, and/or use of iterative reconstruction technique. 3D post processing with MIPs. COMPARISON: 04/27/2017. FINDINGS: Lung bases: Linear scarring or atelectasis left lower lobe. Hepatobiliary: Normal liver attenuation. No intrahepatic or extrahepatic biliary ductal dilatation is identified. There are cholecystectomy clips. No suspicious masses are appreciated. Pancreas/Adrenal glands/Spleen: Spleen is enlarged measuring 15 cm., Slightly increased from prior study. No focal splenic masses are identified. There is a stable tiny right adrenal adenoma. Pancreas is unremarkable. Kidneys: No nephrolithiasis or hydronephrosis is appreciated. Normal bilateral enhancement. No suspicious masses. Retroperitoneum: Normal caliber aorta. No lymphadenopathy. Bowel/Mesentery: Status post gastric bypass. Stable duodenal lipoma. Normal caliber small and large bowel loops. No evidence for obstruction. . No mesenteric lymphadenopathy is appreciated. Appendix evidence for acute appendicitis. There is a 3.9 cm mass within the left rectus abdominis muscle. This would be characteristic of a rectus muscle hematoma in the setting of anticoagulation. There is adjacent fluid within the anterior pelvis suggestive of intraperitoneal hemorrhage. There is a large left adnexal mass measuring 8 x 6 cm. Considered indeterminate. There is mass effect upon the urinary bladder. There is diffuse body wall edema. Degenerative arthropathy lumbar spine. No acute bony abnormality is demonstrated. This report was discussed with Jess, the patient's nurse on 08/15/2019 at 11:40 AM with read back verification. IMPRESSION: 1.New left rectus abdominis mass suspicious for hematoma in the setting of anticoagulation. Adjacent soft tissue stranding/fluid within the upper pelvis also suggestive of intraperitoneal hemorrhage. 2.8.6 cm left adnexal mass considered indeterminate. There is considerable mass effect upon the urinary bladder. Consider correlation with ultrasound. 3.Splenomegaly. 4.Anasarca. 5.Status post gastric bypass. No evidence for obstruction. Electronically signed by Agnieszka Vieira 08/15/2019 11:41 AM
[2019-08-15] MEDS: FLEXERIL PO SCH (22:05)
[2019-08-16] MEDS: NORCO-10 PO PRN ×2 (03:40→20:07)
[2019-08-16] MEDS: ZOFRAN ODT PO PRN (03:40)
[2019-08-16] MEDS: BENADRYL PO PRN (03:40)
--- NOTE | 2019-08-16 04:24 | PROGRESS NOTE ---
DATE: 08/15/2019 SUBJECTIVE: The patient notes she is still having significant left lower quadrant pain, more so when she moves or coughs. Also having urinary pressure. Denies any burning, frequency or urgency. OBJECTIVE: Vital signs reviewed. Temperature 98 degrees, pulse 87, respiratory rate 18, BP 104/57.General: The patient is awake. Currently she is in no distress while she is lying, but she is in obvious pain when she attempts to move. HEENT: Normocephalic. Neck supple. Cardiovascular: Regular rate. Chest clear, nonlabored. No wheezing, no crackles. Cough has tremendously improved. Good air movement. Abdomen is soft, obese, nondistended. Tender in the left lower quadrant to any palpation. Extremities: Moves all extremities. Still has pain in her right calf. Skin warm and dry. No rashes. Neurologic: No focal changes. ASSESSMENT: 1. Right lower extremity deep venous thrombosis. 2. Bilateral pulmonary emboli. 3. Hypoxic respiratory failure, resolved. 4. Left lower quadrant pain secondary to hematoma, with no active extravasation. PLAN: Discussed CT findings with Dr. Man. Most likely the coughing she was doing early on caused her to have a slight tear and then bleed due to anticoagulation, although she currently appears to be stable. Her hemoglobin and hematocrit has stabilized. It was 10 on admission, currently is 7 over the past 2 days. We are going to hold both her Coumadin and her Lovenox for the next day or so. We are going to continue to follow her hemoglobin and hematocrit. If it drops any further, then we will need to repeat CT. If not, she can be discharge home after the next day or two. cc: Macario Wright MD
[2019-08-16] MEDS: PROTONIX PO SCH (06:55)
[2019-08-16 07:24] LABS: HEMATOCRIT 21.1 % (37.0-47.0); MCH 23.9 PG (27-31); MCV 85.4 FL (81-99); MPV 10.6 FL (7.4-10.4); RBC 2.47 XMIL (4.2-5.4); RDW 18.7 % (11.5-14.5); WBC 3.82 X1000 (4.8-10.8)
[2019-08-16 07:25] LABS: HEMOGLOBIN 5.9 g/dL (12.0-16.0)
[2019-08-16 07:50] LABS: INR 2.67; PROTIME 30.1 Seconds (11.0-16.0)
[2019-08-16] MEDS ORDERED: NS 500 ML IV ONE (08:38)
[2019-08-16] MEDS: ATIVAN IV PRN ×2 (09:04→20:08)
[2019-08-16] MEDS: CARAFATE LIQUID PO SCH ×4 (09:04→20:08)
[2019-08-16] MEDS: BUSPAR PO SCH ×2 (09:04→20:07)
[2019-08-16] MEDS: PRINIVIL PO SCH (09:04)
[2019-08-16] MEDS: PAMELOR PO SCH (09:04)
[2019-08-16] MEDS: CELEXA PO SCH (09:04)
[2019-08-16] MEDS: DILAUDID IV PRN ×4 (09:04→22:30)
[2019-08-16] MEDS: LYRICA PO SCH (09:04)
[2019-08-16] MEDS: MIRALAX PO SCH ×2 (09:05→20:08)
--- NOTE | 2019-08-16 10:06 | Diag Imaging Result Doc PS360 ---
EXAM: CT ABDOMEN/PELVIS W/O CONTRAST HISTORY: eval pelvis lesion for extravasation TECHNIQUE: CT abdomen and pelvis without oral or intravenous contrast COMPARISON: 08/15/2019 FINDINGS: there has been a gastric bypass and the gallbladder has been removed. No focal hepatic abnormality identified on this noncontrasted exam. No splenomegaly. No inflammation about the pancreas. Normal adrenal glands. No renal masses. There is intravenous contrast in the collecting systems from the prior CT. No hydronephrosis. There is now a small amount of fluid about the liver which was not previously present. No aortic aneurysm. No bowel obstruction. The urinary bladder is moderately distended. Significant increase in the mixed density area in the pelvis believed to be a large hematoma. Although it is irregularly shaped, it measures approximately 15.3 x 9.6 x 10.1 cm on the current exam. The left rectus hematoma is not larger. IMPRESSION: Interval increase in the size of the large pelvic hematoma This exam was performed using automated exposure control, adjustment of mA or kV according to patient size, and/or use of iterative reconstruction technique. Electronically signed by Román Daniel 08/16/2019 10:03 AM
[2019-08-16] MEDS ORDERED: VITAMIN K PO ONE (13:04)
--- NOTE | 2019-08-16 15:44 | Diag Imaging Result Doc PS360 ---
EXAM: CT ANGIOGRAM ABD/PELIVS W/CON HISTORY: pelvis bleed TECHNIQUE: CT angiogram abdomen and pelvis with intravenous contrast. Arteriogram protocol with MIP images. COMPARISON: Recent exams. FINDINGS: Normal takeoff of the celiac artery and the superior mesenteric artery. Normal takeoff of each renal artery. No stenosis. Mild atherosclerosis distally in the aorta. No aneurysm. Mild atherosclerosis in the common iliac arteries. No stenosis. Normal external iliac arteries. Stenosis of less than 30% in the left common femoral artery. Minimal stenosis in the right common femoral artery. Normal proximal superficial femoral arteries. No definite change in the large pelvic hematoma compared to the exam performed earlier. No arterial extravasation identified. The originating focus of the hemorrhage is not identified. No change in the rectus abdominous hematoma. IMPRESSION: Stable large pelvic hematoma. This exam was performed using automated exposure control, adjustment of mA or kV according to patient size, and/or use of iterative reconstruction technique. Electronically signed by Román Daniel 08/16/2019 3:41 PM
[2019-08-16] MEDS: ZOFRAN IV PRN (17:01)
[2019-08-16 18:09] LABS: HEMATOCRIT 28.7 % (37.0-47.0); HEMOGLOBIN 8.7 g/dL (12.0-16.0); MCHC 30.3 g/dL (33-37); MCV 85.9 FL (81-99); MPV 10.8 FL (7.4-10.4); RBC 3.34 XMIL (4.2-5.4); RDW 18.1 % (11.5-14.5); WBC 7.35 X1000 (4.8-10.8)
[2019-08-16] MEDS: FLEXERIL PO SCH (20:07)
--- NOTE | 2019-08-16 20:51 | PROGRESS NOTE ---
DATE: 08/16/2019 SUBJECTIVE: Patient notes that she is still having quite extensive pain in her left lower quadrant with any moving or coughing. She is very anxious and nervous. She is crying on exam. She is worried. PHYSICAL EXAM: Vital signs: Temperature is 98 degrees, pulse 87, respiratory rate 18, BP 104/57. General: Patient is awake. She is pleasant. She is quite anxious. She is tearful, but she is in no respiratory distress. She is not ill appearing. HEENT: Normocephalic. Neck: Supple. Cardiovascular: Regular rate. Chest: Clear, nonlabored. Abdomen: Soft, exquisitely tender in the left lower quadrant. Neurologic: No focal changes. ASSESSMENT: 1. Anemia. Hemoglobin and hematocrit has dropped again to 5.[address] with a pelvic hematoma. Given her hemoglobin and hematocrit has dropped, we are actually going to repeat her CT. 3. Deep vein thrombosis, right lower extremity. 4. Bilateral pulmonary embolus. 5. Anxiety. 6. Left lower quadrant pain. PLAN: As noted, we are going to repeat her CT today. We are going to give her 3 units of blood, given that it is very highly likely that she has been bleeding into that area. We have discussed with Dr. Man who notes that this would be a very difficult if even possible surgical intervention. If her CT shows any extravasation, we are going to give intervention a call. ADDENDUM: Patient's H H as noted above is at 5.9 and 21. She is currently receiving blood. We did get a repeat CT earlier, which demonstrated an interval significant sized increase in her large pelvic hematoma. Interventional Radiology looked at her scan and could not see anything fixable. We are going to give her vitamin K p.o., obviously stop her Coumadin. Recheck her labs in the a.m. We will add Dilaudid for her pain and Ativan for her current panic attack and anxiety disorder. cc: Macario Wright MD
[2019-08-17] MEDS: DILAUDID IV PRN ×2 (03:11→09:30)
[2019-08-17 07:29] LABS: ALBUMIN 3.2 g/dL (3.5-5.0); CALCIUM 8.4 mg/dL (8.8-10.2); CREATININE 2.4 mg/dL (0.5-0.9); MAGNESIUM 2.3 mg/dL (1.5-2.7); POTASSIUM 5.4 mmol/L (3.5-5.1); TOTAL BILIRUBIN 0.2 mg/dL (0.20-1.00); TOTAL PROTEIN 6.3 g/dL (6.3-8.3)
[2019-08-17] MEDS ORDERED: NS 1,000 ML IV SCH (07:45)
[2019-08-17 07:53] LABS: HEMATOCRIT 32.5 % (37.0-47.0); HEMOGLOBIN 9.8 g/dL (12.0-16.0); MCH 26.4 PG (27-31); MCHC 30.2 g/dL (33-37); MCV 87.6 FL (81-99); MPV 11.1 FL (7.4-10.4); RBC 3.71 XMIL (4.2-5.4); RDW 18.4 % (11.5-14.5); WBC 10.31 X1000 (4.8-10.8)
[2019-08-17 08:27] LABS: INR 2.56; PROTIME 29.1 Seconds (11.0-16.0)
[2019-08-17] MEDS ORDERED: VITAMIN K PO ONE (09:22)
[2019-08-17] MEDS: CELEXA PO SCH (09:30)
[2019-08-17] MEDS: LYRICA PO SCH (09:30)
[2019-08-17] MEDS: PAMELOR PO SCH (09:30)
[2019-08-17] MEDS: PROTONIX PO SCH (09:31)
[2019-08-17] MEDS: BUSPAR PO SCH (09:31)
[2019-08-17] MEDS: MIRALAX PO SCH (09:31)
[2019-08-17] MEDS: CARAFATE LIQUID PO SCH ×3 (12:15→16:47)
[2019-08-17] MEDS: NORCO-10 PO SCH ×3 (12:15→16:43)
[2019-08-17 13:01] VITALS: BP 119/69
[2019-08-17 16:06] LABS: URINE SOURCE CATH
[2019-08-17 16:08] LABS: BILIRUBIN URINE NEGATIVE (NEGATIVE); BLOOD URINE SMALL (NEGATIVE); COLOR YELLOW; GLUCOSE URINE NEGATIVE (NEGATIVE); KETONE URINE NEGATIVE (NEGATIVE); LEUKOCYTES URINE NEGATIVE (NEGATIVE); NITRITE URINE NEGATIVE (NEGATIVE); PROTEIN URINE NEGATIVE (NEGATIVE); SP GRAVITY URINE 1.021; TURBIDITY URINE CLEAR (CLEAR); UROBILINOGEN URINE NORMAL (NORMAL)
[2019-08-17 16:09] LABS: UR EPITHELIAL CELLS <10 /HPF (<10); URINE BACTERIA NEGATIVE /HPF; URINE RBC <10 /HPF (<10); URINE WBC <10 /HPF (<10)
--- NOTE | 2019-08-17 21:10 | PROGRESS NOTE ---
DATE: 08/17/2019 SUBJECTIVE: Patient has no new complaints today. She is still complaining of intense abdominal pain of bilateral lower quadrants. States she is unable to move or get up. The patient notes that she has been lying in the bed all night, that no one had ever came and checked on her, and she has been hurting. However, in the same breath, she also states that she is scared that she is going to lose her baby due to all of this pain. After discussing with her that she is 54 and she is not , she immediately said, "oh, I don't know what I'm talking about, I guess I watch too much television." PHYSICAL EXAMINATION: Temperature 98.2, pulse 102, respiratory rate 18, BP 111/64.General: Patient is awake and alert. She is in no respiratory distress. She is clearly confused and disoriented. She is obviously not . She is having some pain and pressure in her pelvic region which may be similar symptoms. She is obviously not paralyzed as I myself witnessed her sit up on the side of the bed, stand up, and walk to the restroom with no assistance needed. HEENT: Normocephalic. Neck: Supple. Cardiovascular: Regular rate. Chest: Clear, nonlabored. Abdomen: Soft, obese, nondistended, although tender in the left lower quadrant. Extremities: Moves all extremities. Edema more so in the right than left. Neurologic: No focal changes, although she is confused easily. ASSESSMENT: 1. Bilateral pulmonary emboli. 2. Acute on chronic renal failure. Creatinine is elevated at 2.4, with repeat pending. 3. Hypercoagulable. Her INR is still 2.5. We are going to give one more dose of vitamin K as she has the hematoma from yesterday. 4. Anemia. Her hemoglobin and hematocrit after 3 units, went from 5 and 21, to today at 9 and 32. Currently very stable. It was 8 and 28 yesterday. 5. Right lower extremity deep vein thrombosis. 6. Hematoma. PLAN: Given the patient recently had extension of her hematoma as well as a drop in her blood count to 5 and 21, we are going to give her one more dose of p.o. vitamin K, continue to hold Lovenox as well as Coumadin. She currently is anticoagulated with an INR of 2.5, but certainly need to reverse this until we are certain that her hematoma has stopped expanding. Dr. Man with General Surgery, as well as Interventional Radiology at [place], have reviewed her scans and both agree that intervention would not be in Ms. Lomeli's best interest at the current stage. I did discuss with her again the importance of drinking. She was initially admitted and her creatinine increased to 1.9 because she was refusing to drink. We restarted IV fluids. Creatinine dropped to 1. Stopped her IV fluids and again her creatinine bumped up to 2.4 due to her refusal to drink. Encouraged the importance of drinking and will follow her creatinine. cc: Macario Wright MD
--- NOTE | 2019-08-18 05:39 | DISCHARGE SUMMARY ---
ADMISSION DATE: 08/08/2019 DISCHARGE DATE: 08/17/2019 DISCHARGE DIAGNOSES: Patient left against medical advice. BRIEF HOSPITAL COURSE: The patient was seen earlier in the day. As noted, she is disoriented and confused at times although at times she is lucid. Her family came to check on her and they refused to allow her to stay in the hospital. They took her out of the hospital and stated they were going to go to [place]. We attempted to discuss with them the perils of this potentially disastrous decision. They refused to stay. As noted on her progress note earlier, she does have bilateral PEs, has a DVT, but she is not currently on anticoagulation secondary to her large pelvic hematoma. It does appear to be stable on repeat CT scan. Her hemoglobin and hematocrit has not only stabilized but is actually improved. Hopefully they will follow through and carry her to the hospital. She does need to be watched for another day or 2 and then subsequently restarted on blood thinner given her bilateral PEs. cc: Macario Wright MD
== END 2019-08-17 16:35 | disposition left against medical advice (07) | DRG 175 ==
LOC: P.ED 12:39 → P.EDIPHOLD 19:55
PROVIDERS: ATTEND Family Medicine